=== PATIENT | male | born 1935 | race Caucasian/White ===

== ENCOUNTER 2018-02-18 00:15 | Emergency (ER) | payer MEDICARE, OTHER ==
[~2018-02-18] VITALS: Ht 180.3 cm; Wt 98.6 kg
[~2018-02-18 00:15] MED LIST: ACTOS30 MG OR; AMARYL1 MG OR; AMITRIPTYLIN25 MG OR; BABY ASPIRIN81 MG OR; BACTRIM DS1 TAB OR; CARDIZEM CD240 MG PO; CARVEDILOL25 MG OR; CHERATUSSIN OR; CIPRO500 MG OR; CIPRO500 MG PO; FEXOFENADINE H180 MG OR; FLAGYL500 MG OR; FLONASE NASAL50 MCG; GLUCOPHAGE1000 MG OR; GLYNASE3 MG PO; GLYNASE6 MG PO; HYDROCHLOROT12.5 MG PO; HYDROCHLOROT50 MG OR; ISOSORB MONO30 MG PO; LASIX 40 MG TAB40 MG PO; LASIX20 MG OR; LISINOPRIL10 MG PO; LOTENSIN10 MG OR; LOTENSIN20 MG PO; LUNESTA2 M1 OR; METOPROL TAR50 MG PO; NEXIUM40 M1 OR; OMEPRAZOLE20 MG PO; PERCOCET 5/325M1 TAB OR; PRAVASTATIN40 MG OR; REGLAN10 MG OR; ZOLPIDEM5 MG PO
[2018-02-18 00:44] VITALS: BP 185/82
== END 2018-02-18 00:44 | disposition home or self-care (01) ==
LOC: ED 00:15
DX: S61.213A Laceration without foreign body of left middle finger without damage to nail, initial encounter (principal); W26.0XXA Contact with knife, initial encounter; Y93.G1 Activity, food preparation and clean up; Y92.000 Kitchen of unspecified non-institutional (private) residence as the place of occurrence of the external cause; Z79.02 Long term (current) use of antithrombotics/antiplatelets; Z79.82 Long term (current) use of aspirin

== ENCOUNTER 2019-02-14 10:48 | Emergency (ER) | payer MEDICARE, OTHER ==
[~2019-02-14] VITALS: Ht 180.3 cm; Wt 104.0 kg
[2019-02-14] MEDS ORDERED: LIPITOR40 M1 PO (10:57)
[2019-02-14] MEDS ORDERED: ATENOLOL50 MG PO (10:57)
[2019-02-14] MEDS ORDERED: BENAZEPRIL5 MG PO (10:58)
[2019-02-14] MEDS ORDERED: CLOPIDOGREL75 MG PO (11:00)
[2019-02-14] MEDS ORDERED: FUROSEMIDE20 MG PO (11:00)
[2019-02-14] MEDS ORDERED: GABAPENTIN100 MG PO (11:01)
[2019-02-14] MEDS ORDERED: TRAZODONE50 MG PO (11:01)
[2019-02-14] MEDS ORDERED: NOVOLIN 70/30 INNLT SC (11:02)
[2019-02-14] MEDS ORDERED: BACTRIM DS1 TAB PO (11:41)
[2019-02-14 12:24] VITALS: BP 168/72
== END 2019-02-14 12:45 | disposition home or self-care (01) ==
LOC: ED 10:48
DX: S91.215A Laceration without foreign body of left lesser toe(s) with damage to nail, initial encounter (principal)

== ENCOUNTER 2019-07-29 | Emergency (ER) | payer MEDICARE, OTHER ==
[~2019-07-29] MED LIST changes: +ATENOLOL50 MG PO; +BACTRIM DS1 TAB PO; +BENAZEPRIL5 MG PO; +CLOPIDOGREL75 MG PO; +FUROSEMIDE20 MG PO; +GABAPENTIN100 MG PO; +LIPITOR40 M1 PO; +NOVOLIN 70/30 INNLT SC; +TRAZODONE50 MG PO
[2019-07-29 12:38] LABS: HEMATOCRIT 39.7 % (39.0-50.0); HEMOGLOBIN 12.7 g/dl (14.0-18.0); IMMATURE GRANULOCYTES 0.5 % (0.0-5.0); MEAN CELL VOLUME 94.1 fL CALC (80.0-100.0); MEAN CORPUSCULAR HGB 30.1 pG CALC (26.0-32.0); NEUT# 13.3 thou/uL (1.82-7.42); RED BLOOD COUNT 4.22 mill/uL (4.70-6.10); RED CELL DISTRI WIDTH 13.9 % (11.5-15.5)
[2019-07-29 12:45] LABS: URINE BILIRUBIN - DIPSTICK NEGATIVE (NEGATIVE); URINE BLOOD DIPSTICK TRACE-INTACT (NEGATIVE); URINE COLOR YELLOW; URINE GLUCOSE - DIPSTICK NEGATIVE (NEGATIVE); URINE KETONE NEGATIVE (NEGATIVE); URINE LEUK ESTERASE NEGATIVE (NEGATIVE); URINE NITRITE - DIPSTICK NEGATIVE (Negative); URINE PH 5.5 (4.5-8.0); URINE PROTEIN - DIPSTICK NEGATIVE (NEG-TRACE); URINE UROBILINOGEN - DIPSTICK 0.2 E.U./dL (0.2)
[2019-07-29 13:03] LABS: ALBUMIN 3.8 g/dL (3.2-5.0); ALKALINE PHOSPHATASE 113 u/l (38-126); ANION GAP 14 (6-22 (CALC)); BUN 24 mg/dL (8-23); BUN/CREATININE RATIO 19 (12-20 (CALC)); CARBON DIOXIDE 24 mmol/l (22-30); CHLORIDE 102 mmol/l (95-108); CREATININE 1.3 mg/dL (0.7-1.3); GFR 53 ML/MIN (>=60 (CALC)); GFR FOR AFR.AMER. > 60 ML/MIN (>=60 (CALC)); POTASSIUM 4.3 mmol/l (3.5-5.1); SGOT/AST 34 u/l (19-48); SODIUM 135 mmol/l (137-146); TOTAL PROTEIN 6.7 g/dL (6.3-8.2)
[2019-07-29 13:05] LABS: BILIRUBIN, TOTAL 1.3 mg/dL (0.0-1.4)
[2019-07-29] MEDS ORDERED: NOVOLIN 70/30 SC (13:09)
[2019-07-29] MEDS ORDERED: MV-ONE PO (13:13)
[2019-07-29] MEDS ORDERED: LOSARTAN POTASS50 MG PO (13:16)
[2019-07-29] MEDS ORDERED: NITROGLYCERIN0.4 MG SL (13:18)
[2019-07-29] MEDS ORDERED: VITAMIN D2 PO (13:19)
[2019-07-29] MEDS ORDERED: LEVAQUIN750 MG PO (15:21)
== END 2019-07-29 16:15 | disposition home or self-care (01) ==
PROVIDERS: Family Medicine
DX: J18.9 Pneumonia, unspecified organism (principal); E11.9 Type 2 diabetes mellitus without complications; I10 Essential (primary) hypertension; Z79.4 Long term (current) use of insulin; Z20.828 Contact with and (suspected) exposure to other viral communicable diseases
CPT/HCPCS: J1956; Q9967

== ENCOUNTER 2020-08-21 07:25 | Inpatient (IN) | payer MEDICARE, OTHER ==
[~2020-08-21] VITALS: Ht 180.3 cm; Wt 110.0 kg
[~2020-08-21 07:25] MED LIST changes: +LEVAQUIN750 MG PO; +LOSARTAN POTASS50 MG PO; +MV-ONE PO; +NITROGLYCERIN0.4 MG SL; +NOVOLIN 70/30 SC; +VITAMIN D2 PO
--- NOTE | 2020-08-21 07:25 | NUR ---
PATIENT TO ROOM VIA EMS AND PHYSICIAN AT BEDSIDE FOR EVAL
[2020-08-21 08:11] LABS: HEMATOCRIT 42.5 % (39.0-50.0); HEMOGLOBIN 13.3 g/dl (14.0-18.0); IMMATURE GRANULOCYTES 0.5 % (0.0-5.0); MEAN CELL VOLUME 95.3 fL CALC (80.0-100.0); MEAN CORPUSCULAR HGB 29.8 pG CALC (26.0-32.0); MEAN CORPUSCULAR HGB CONC 31.3 g/dL CAL (32.0-36.0); NEUT# 6.66 thou/uL (1.82-7.42); RED BLOOD COUNT 4.46 mill/uL (4.70-6.10); RED CELL DISTRI WIDTH 14.4 % (11.5-15.5)
[2020-08-21 08:21] LABS: URINE BILIRUBIN - DIPSTICK NEGATIVE (NEGATIVE); URINE BLOOD DIPSTICK NEGATIVE (NEGATIVE); URINE COLOR YELLOW; URINE GLUCOSE - DIPSTICK NEGATIVE (NEGATIVE); URINE KETONE NEGATIVE (NEGATIVE); URINE LEUK ESTERASE NEGATIVE (NEGATIVE); URINE PH 5.5 (4.5-8.0); URINE PROTEIN - DIPSTICK NEGATIVE (NEG-TRACE); URINE UROBILINOGEN - DIPSTICK 0.2 E.U./dL (0.2)
[2020-08-21 08:26] LABS: URINE NITRITE - DIPSTICK NEGATIVE (Negative)
[2020-08-21 08:31] LABS: ALBUMIN 3.8 g/dL (3.2-5.0); ALKALINE PHOSPHATASE 141 u/l (38-126); AMYLASE 54 u/l (30-110); BILIRUBIN, TOTAL 0.8 mg/dL (0.0-1.4); BUN 30 mg/dL (8-23); BUN/CREATININE RATIO 15 (12-20 (CALC)); CHLORIDE 100 mmol/l (95-108); GFR 32 ML/MIN (>=60 (CALC)); GFR FOR AFR.AMER. 39 ML/MIN (>=60 (CALC)); LIPASE 38 u/l (23-300); MAGNESIUM 2.2 mg/dL (1.6-2.3); SGOT/AST 31 u/l (19-48); SODIUM 137 mmol/l (137-146); TOTAL PROTEIN 7.1 g/dL (6.3-8.2)
--- NOTE | 2020-08-21 08:34 | NUR ---
AT BEDSIDE. PT RESTING COMFORTABLY
[2020-08-21 08:36] LABS: ANION GAP 11 (6-22 (CALC)); C-REACTIVE PROTEIN 3.2 mg/dL (0-0.9); CARBON DIOXIDE 30 mmol/l (22-30)
[2020-08-21] MEDS ORDERED: ATENOLOL50 MG PO (09:22)
[2020-08-21] MEDS ORDERED: ASPIRIN81 MG PO (09:22)
[2020-08-21] MEDS ORDERED: LIPITOR40 M1 PO (09:23)
[2020-08-21] MEDS ORDERED: LOSARTAN POTASS50 MG PO ×2 (09:24)
[2020-08-21] MEDS ORDERED: FAMOTIDINE40 M1 PO (09:25)
[2020-08-21] MEDS ORDERED: CLOPIDOGREL75 MG PO (09:26)
[2020-08-21] MEDS ORDERED: FUROSEMIDE20 MG PO (09:28)
[2020-08-21] MEDS ORDERED: ISOSORB MONO30 MG PO (09:29)
[2020-08-21] MEDS ORDERED: GABAPENTIN100 MG PO (09:29)
[2020-08-21] MEDS ORDERED: MULTIVITAMI9 PO (09:30)
--- NOTE | 2020-08-21 09:30 | NUR ---
RESTING ON STRETCHER. CALL IVORY WITHIN REACH. O2 SATURATION DECREASES TO LOW 90'S WHEN FALLING ASLEEP. ENCOURAGED TO TAKE DEEP BREATHS AND OXYGEN INCREASED TO 4L VIA NC
[2020-08-21] MEDS ORDERED: VITAMIN D31000 UNI1 PO (09:36)
[2020-08-21] MEDS ORDERED: NOVOLOG MIX100 U/ML SC (09:37)
[2020-08-21] MEDS ORDERED: PROTONIX40 M2 PO (09:37)
[2020-08-21] MEDS ORDERED: TRAZODONE50 MG PO (09:38)
[2020-08-21] MEDS ORDERED: NITROGLYCERIN0.4 MG SL (09:41)
--- NOTE | 2020-08-21 10:39 | NUR ---
TOOK OVER CARE AT THIS TIME, PATIENT DENIES ADDITIONAL PAIN FROM CHRONIC LEVELS, PROVIDED WITH ADDITIONAL ORAL INTAKE AT THIS TIME, AT THE BEDSIDE
--- NOTE | 2020-08-21 11:55 | NUR ---
FEELING MUCH BETTER, AT BEDSIDE
--- NOTE | 2020-08-21 12:35 | NUR ---
PATIENT ARRIVED TO UNIT VIA STREATCHER WITH AT SIDE. PATIENT ALERT AND ORIENTED TO ROOM AND SURROUNDINGS AND THE USE OF A CALL LIGHT. PATIENT SIDERAILS ARE UP X 2. PATIENT LUNG SOUNDS ASSESSED UPPER LUNG WOLFE ARE CLEAR SOUNDING AND LOWER LONG FIELD ARE DIMINISHED. PATIENT PRESENTS WITH TRACE OF BILATERAL LOWER ANKLE EDEMA. PATIENT HAS 02 ON AT 2 LITER AND SPO2 IS 96%. 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 PATIENT DENEIS ANY PAIN AND NO OPEN AREAS ON SKIN NOTED AT THIS TIME. PATIENT IS ALERT AND ORIENTED AND UNDERSTANDS SAFETY POLICY. PATIENT IV IS PATENT AND IS A #20 LAC WITH .9NS/100MLS AND HOUR. SIDERAILS ARE UP CALL LIGHT WITHIN REACH NO NOTICIABLE SHORTNESS OF BREATH AND PATIENT DENIES BEING SHORT OF BREATH. PATIENT ALSO DENIES ANY NAUSEA AND OR VOMITTING AT THIS TIME. PATIENT IS EATING LUNCH CURRENTLY. WILL CONTINUE TO MONITOR.
--- NOTE | 2020-08-21 12:44 | NUR ---
Admission Note Report Given to: NEVA Transported by: Wheelchair X Stretcher Transported with: X Nurse Transporter X Patent IV X O2 Log Buncher Location: ICU X [facility]
[2020-08-21 13:43] VITALS: BP 95/57
[2020-08-21 16:00] VITALS: BP 96/57
--- NOTE | 2020-08-21 16:00 | NUR ---
PATIENT RESTING IN BED AT THIS TIME. PATIENT DENIES ANY PAIN OR NAUSEA AND OR VOMITING AT THIS TIME. PATIENT DENIES ANY SHORTNESS OF BREATH AND O2 REMAINS ON AT 2 LITERS. SIDERAILS ARE UP X 2 CALL LIGHT WITHIN REACH AND BED ALARM ACTIVATED.
--- NOTE | 2020-08-21 19:34 | NUR ---
PT ASSESSMENT COMPLETED AT THIS TIME. HE IS AWAKE WATCHING TV, ASKED FOR HIS PHONE, STARTED MAKING A PHONE CALL WHILE I AM IN THE ROOM. C/O BURNING TO HIS FEET, STATED 'I HAVEN'T HAD ANY OF MY MEDICATIONS." MED REQ REVIEWED, I INFORMED HIM OF MED SCHEDULE, VERBALIZED UNDERSTANDING. PT LEFT TALKING ON THE PHONE. WHEEZING WAS AUSCULTATED THROUGHOUT ALL LOBES UPON EXPIRATION. SKIN APPEARS INTACT. NEURO'S ALSO INTACT. LOCX3. PT ALSO STATED "THEY WON'T LET ME UP BY MYSELF" I REINFORCED THAT ASKING HIM TO PLEASE CALL, SHOWING HIM THE RED CALL BUTTON, HE VERBALIZED UNDERSTANDING. BED ALARM IS ON FOR PRECAUTIONS.
[2020-08-21 20:05] VITALS: BP 136/65
--- NOTE | 2020-08-21 20:33 | NUR ---
MEDICATION ADMINISTERED AT THIS TIME.
--- NOTE | 2020-08-21 22:09 | NUR ---
PT SET BED ALARM OFF, UPON ENTERING THE ROOM, HE WAS SITTING ON THE SIDE OF THE BED USING THE URINAL. 200CC OF DARK YELLOW CLEAR URINE EMPTIED AT THIS TIME. ASSISTED PT BACK INTO THE BED AND ASSISTED POSITIONING FOR COMFORT. PT ASKED FOR LIGHTS TO BE TURNED DOWN AND TV OFF. NIGHTLIGHT LEFT ON FOR SAFETY AND COMFORT TO ASSIST IN SEEING CALL LIGHT. DENIES ANY OTHER NEEDS AT THIS TIME. BED ALARM IS ON AND CALL LIGHT W/IN REACH.
--- NOTE | 2020-08-21 23:36 | NUR ---
MANUAL BP ASSESSED AT THIS TIME. 108/62. PT ASKED FOR WATER, I REMINDED HIM THAT HE HAS IT ON HIS BST NEXT TO HIM, HE REPLIED, "I KNOW BUT IT IS A LOT OF WORK TURNING OVER AND GETTING TO IT" I REMINDED HIM TO KEEP MOVING TO HELP HIS LUNGS AND STREGNTH. ANTIBIOTIC THERAPY ADMINISTERED AT THIS TIME AND CALL LIGHT AT SIDE. BED ALARM IS ON.
[2020-08-22] VITALS: BP 108/62
--- NOTE | 2020-08-22 00:42 | NUR ---
PT SOUNDED BED ALARM. UPON ENTERING THE ROOM, PT WAS OBSERVED SITTING ON THE SIDE OF THE BED. REPORTS NOT BEING ABLE TO SLEEP, HE ASKED FOR SLEEP AIDE, I INFORMED HIM THAT HE ALREADY TOOK TRAZADONE FOR SLEEP, HE REPLIED, "I DIDN'T REALIZE I HAD TAKEN IT ALREADY, I WOULD HAVE WAITED UNTIL I WAS READY TO GO TO BED" I INFORMED HIM THAT HE TOOK IT JUST BEFORE TURNING LIGHTS AND TV OFF FOR THE NIGHT. WARM BROTH, MILK, COMFORT MEASURES OFFERED/REFUSED AT THIS TIME. PT DENIED THE NEED TO USE URINAL. I OFFERED TO ASSIST HIM TO THE RECLINER FOR COMFORT/DENIED. PT LEFT SITTING ON THE SIDE OF THE BED WITH CALL LIGHT W/IN REACH.
--- NOTE | 2020-08-22 01:45 | NUR ---
pt sleeping, no s/o distress noted. call light at side.
--- NOTE | 2020-08-22 03:56 | NUR ---
v/s assessed, no s/o distress noted.
[2020-08-22 04:00] VITALS: BP 110/48
[2020-08-22 05:47] LABS: MEAN CELL VOLUME 97.3 fL CALC (80.0-100.0); MEAN CORPUSCULAR HGB 29.8 pG CALC (26.0-32.0); MEAN CORPUSCULAR HGB CONC 30.6 g/dL CAL (32.0-36.0); RED BLOOD COUNT 3.73 mill/uL (4.70-6.10); RED CELL DISTRI WIDTH 14.8 % (11.5-15.5)
[2020-08-22 05:51] LABS: HEMATOCRIT 36.3 % (39.0-50.0); HEMOGLOBIN 11.1 g/dl (14.0-18.0)
[2020-08-22 06:03] LABS: CREATININE 1.5 mg/dL (0.7-1.3); MAGNESIUM 2.3 mg/dL (1.6-2.3); POTASSIUM 4.3 mmol/l (3.5-5.1)
--- NOTE | 2020-08-22 07:00 | NUR ---
PT REPORT RECEIVED FROM NIGHT NURSEMYRA.
[2020-08-22 08:00] VITALS: BP 129/68
--- NOTE | 2020-08-22 08:00 | NUR ---
PT WAS FOUND RESTING IN BED;PT IS A&OX3;VS AND ASSESSMENT WERE COMPLETED;PT HAS NO REPORTS OF PAIN AT THIS TIME;HEART SOUNDS ARE REGULAR IN RATE AND RHYTHM;TELE IS IN PLACE;LUNGS SOUNDS ARE DIMINISHED IN ALL LOBES;RESPIRATIONS ARE EVEN AND UNLABORED ON RA;O2@2L VIA NC IS IN PLACE;PT HAS TRACE EDEMA PRESENT IN LOWER LEGS BILATERALLY;#20G IV IN LAC IS RUNNING NS@100ML/HR:IV SITE APPEARS TO BE FREE OF COMPLICATIONS AT THIS TIME;SAFETY PRECAUTIONS IN PLACE;BED ALARM ON;CALL LIGHT WITHIN REACH;PT ENCOURAGED TO CALL WITH ANY NEEDS OR CONCERNS;BED IN LOWEST POSITION;WILL CONTINUE TO MONITOR.
--- NOTE | 2020-08-22 10:30 | NUR ---
AND PABLO MARTINEZ AT BEDSIDE DISCUSSING POC WITH PT
[2020-08-22 10:54] VITALS: BP 144/56
--- NOTE | 2020-08-22 12:55 | NUR ---
PT IS COMPLAINING OF SNEEZING WHEN O2 IS IN PLACE; HUMIDIFIED AIR WAS ADDED TO O2.
[2020-08-22 15:30] VITALS: BP 96/54
--- NOTE | 2020-08-22 16:00 | NUR ---
PT WAS FOUND RESTING IN BEDSIDE CHAIR WATCHING TV;PT IS REPORTING NO PAIN AT THIS TIME;TELE IS IN PLACE;#20G IV IN LAC IS RUNNING NS@100 ML/HR;IV SITE APPEARS FREE OF COMPLICATIONS AT THIS TIME;SAFETY PRECAUTIONS IN PLACE;CHAIR ALARM ON;CALL LIGHT WITHIN REACH;PT EMCOURAGED TO CALL FOR ANY NEEDS OR CONCERNS;WILL CONTINUE TO MONITOR.
[2020-08-22 19:00] VITALS: BP 108/52
--- NOTE | 2020-08-22 20:00 | NUR ---
PHYSICAL ASSESMENT COMPLETE. PT CURRENTLY DENIES PAIN OR DISCOMFORT. SCHEDULED MEDICATIONS AND PRN MEDICATION ADMINISTERED, SEE E-MAR. PT DENIES ANY NEEDS AT THIS TIME. PLAN OF CARE REVIEWED, PT DENIES QUESTIONS, VERBALIZES UNDERSTANDING. ITEMS WITHIN REACH, BED LOCKED IN LOW POSITION W/ BEDRAILS UP X2. CALL IVORY WITHIN REACH, AGREES TO CALL PRN.
--- NOTE | 2020-08-23 | NUR ---
PT LAYING IN BED WITH EYES CLOSED, APPEARS TO BE SLEEPING, APPEARS COMFORTABLE AND IN NO DISTRESS. RESPIRATIONS REGULAR AND UNLABORED. ITEMS REMAIN WITHIN REACH, CALL IVORY REMAINS WITHIN REACH. BED REMAINS LOCKED AND IN LOW POSITION WITH BEDRAILS UP X2. WILL CONTINUE TO MONITOR.
[2020-08-23 00:17] VITALS: BP 125/62
--- NOTE | 2020-08-23 04:04 | NUR ---
PT RESTING IN BED, NO SIGNS OF DISTRESS NOTED, RESP EVEN AND UNLABORED. PT VOICES NO NEEDS OR COMPLAINTS AT THIS TIME. CALL LIGHT IN REACH, CONTINUE TO MONITOR.
--- NOTE | 2020-08-23 04:07 | NUR ---
PT SITTING UP BEDSIDE. C/O DIFFICULTY BREATHING WHILE LYING DOWN. BED ALARM IS ON; WILL CONTINUE TO MONITOR.
[2020-08-23 04:30] VITALS: BP 99/40
[2020-08-23 06:54] LABS: HEMATOCRIT 35.3 % (39.0-50.0); HEMOGLOBIN 10.8 g/dl (14.0-18.0); MEAN CELL VOLUME 97.8 fL CALC (80.0-100.0); MEAN CORPUSCULAR HGB 29.9 pG CALC (26.0-32.0); MEAN CORPUSCULAR HGB CONC 30.6 g/dL CAL (32.0-36.0); RED BLOOD COUNT 3.61 mill/uL (4.70-6.10); RED CELL DISTRI WIDTH 14.6 % (11.5-15.5)
--- NOTE | 2020-08-23 07:00 | NUR ---
PT REPORT RECEIVED FROM NIGHT NURSEIVANNA
[2020-08-23 07:28] LABS: ANION GAP 9 (6-22 (CALC)); BUN 24 mg/dL (8-23); BUN/CREATININE RATIO 18 (12-20 (CALC)); CARBON DIOXIDE 23 mmol/l (22-30); CHLORIDE 105 mmol/l (95-108); CREATININE 1.3 mg/dL (0.7-1.3); GFR 53 ML/MIN (>=60 (CALC)); GFR FOR AFR.AMER. > 60 ML/MIN (>=60 (CALC)); MAGNESIUM 2.1 mg/dL (1.6-2.3); POTASSIUM 4.4 mmol/l (3.5-5.1); SODIUM 133 mmol/l (137-146)
[2020-08-23 07:30] VITALS: BP 134/63
--- NOTE | 2020-08-23 08:00 | NUR ---
PT WAS FOUND RESTING IN BEDSIDE CHAIR;PT IS A&OX3;VS AND ASSESSMENT WERE COMPLETED;PT IS REPORTING NO PAIN AT THIS TIME;HEART SOUNDS ARE REGULAR IN RATE AND RHYTHM;TELE IS IN PLAICE;LUNG SOUNDS ARE DIMINISHED IN ALL LOBES;RESPIRATIONS ARE EVEN AND UNLABORED ON O2@2L VIA NC;PT HAS SOME TRACE PITTING EDEMA IN HIS LOWER EXTREMETIES;#20G IV IN LAC IS RUNNING NS@100ML/HR;IV SITE APPEARS FREE OF COMPLICATIONS AT THIS TIME;SAFETY PRECAUTIONS IN PLACE;CHAIR ALARM ON;CALL LIGHT WITHIN REACH;PT ENCOURAGED TO CALL WITH ANY NEEDS OR CONCERNS;WILL CONTINUE TO MONITOR.
[2020-08-23 10:23] VITALS: BP 106/54
--- NOTE | 2020-08-23 11:18 | NUR ---
PT TRANSPORTED TO CT VIA WC IN STABLE CONDITION ACCOMPANIED BY DM STAFF.
--- NOTE | 2020-08-23 12:50 | NUR ---
PT RETURNED VIA WC IN STABLE CONDITION FROM CT ACCOMPANIED BY STAFF
[2020-08-23] MEDS ORDERED: LEVAQUIN750 M1 PO (14:48)
[2020-08-23 15:07] VITALS: BP 137/58
--- NOTE | 2020-08-23 16:00 | NUR ---
PT WAS FOUND RESTING IN BED IN SEMI-FOWLERS POSITION; IS AT BEDSIDE;TELE IS DC WELL IV REMOVED IN ANTICIPATION OF DISCHARGE;SAFETY PRECAUTIONS IN PLACE;CALL LIGHT WITHIN REACH;BED ALARM ON;WILL CONTINUE TO MONITOR.
--- NOTE | 2020-08-23 16:50 | NUR ---
Discharge instructions given. Patient verbalizes understanding of same. Discharged in stable condition via Wheelchair to Home with spouse. All belongings sent with pt. DISCHARGE PACKET WAS GIVEN TO PT;DISCHARGE INSTRUCTIONS AND MEDICATIONS WERE EXPLAINED TO PT;PT EXPRESSED UNDERSTANDING AND HAD NO FURTHER QUESTIONS;SIGNATURE WAS OBTAINED;TELE WAS REMOVED;IV WAS REMOVED WITH NO COMPLICATIONS AND CATHETER INTACT; PT WAS TRANSPORTED TO [facility] VIA IN STABLE CONDITION ACCOMPANIED BY STAFF;ALL PT BELONGINGS WERE SENT WITH PT;PT WILL BE TRANSPORTED HOME WITH HOME HEALTH AND PHYSICAL THERAPY IN PLACE;PT WILL TRANSPORT HOME WITH FAMILY.
== END 2020-08-23 16:50 | disposition home health service (06) | DRG 193 ==
LOC: ED 07:25 → ED-I 10:54 → ED 11:22 → MS2 11:23
PROVIDERS: Emergency Medicine; Nurse Practitioner; ADMIT Internal Medicine; ATTEND Internal Medicine
DX: J18.9 Pneumonia, unspecified organism (principal); J96.91 Respiratory failure, unspecified with hypoxia; N17.9 Acute kidney failure, unspecified; E11.22 Type 2 diabetes mellitus with diabetic chronic kidney disease; I12.9 Hypertensive chronic kidney disease with stage 1 through stage 4 chronic kidney disease, or unspecified chronic kidney disease; N18.9 Chronic kidney disease, unspecified; R16.0 Hepatomegaly, not elsewhere classified; K21.9 Gastro-esophageal reflux disease without esophagitis; I25.10 Atherosclerotic heart disease of native coronary artery without angina pectoris; Z95.1 Presence of aortocoronary bypass graft; Z79.4 Long term (current) use of insulin; Z20.822 Contact with and (suspected) exposure to COVID-19
CPT/HCPCS: J1650; Q9967; S0073

== ENCOUNTER 2020-08-23 21:21 | Emergency (ER) | payer MEDICARE, OTHER ==
[~2020-08-23] VITALS: Ht 180.3 cm; Wt 100.0 kg
[~2020-08-23 21:21] MED LIST changes: +ASPIRIN81 MG PO; +FAMOTIDINE40 M1 PO; +LEVAQUIN750 M1 PO; +MULTIVITAMI9 PO; +NOVOLOG MIX100 U/ML SC; +PROTONIX40 M2 PO; +VITAMIN D31000 UNI1 PO
[2020-08-23 21:55] LABS: HEMATOCRIT 34.7 % (39.0-50.0); IMMATURE GRANULOCYTES 0.5 % (0.0-5.0); MEAN CELL VOLUME 94.8 fL CALC (80.0-100.0); MEAN CORPUSCULAR HGB 30.1 pG CALC (26.0-32.0); MEAN CORPUSCULAR HGB CONC 31.7 g/dL CAL (32.0-36.0); NEUT# 8.93 thou/uL (1.82-7.42); RED BLOOD COUNT 3.66 mill/uL (4.70-6.10); RED CELL DISTRI WIDTH 14.4 % (11.5-15.5)
[2020-08-23 22:12] LABS: INTERNATIONAL NORMALIZED RATIO 1.1 RATIO (0.7-1.3); PROTHROMBIN TIME 10.8 SECONDS (9.0-12.5)
[2020-08-23 22:15] LABS: ALBUMIN 3.3 g/dL (3.2-5.0); ALKALINE PHOSPHATASE 132 u/l (38-126); ANION GAP 11 (6-22 (CALC)); BILIRUBIN, TOTAL 1.5 mg/dL (0.0-1.4); BUN 24 mg/dL (8-23); BUN/CREATININE RATIO 18 (12-20 (CALC)); CARBON DIOXIDE 22 mmol/l (22-30); CHLORIDE 103 mmol/l (95-108); CREATININE 1.3 mg/dL (0.7-1.3); GFR 53 ML/MIN (>=60 (CALC)); GFR FOR AFR.AMER. > 60 ML/MIN (>=60 (CALC)); POTASSIUM 4.4 mmol/l (3.5-5.1); SGOT/AST 41 u/l (19-48); SODIUM 132 mmol/l (137-146); TOTAL PROTEIN 6.6 g/dL (6.3-8.2)
[2020-08-23 22:33] LABS: MYOGLOBIN 663 ng/mL (0 - 121)
[2020-08-24 01:05] VITALS: BP 195/86
== END 2020-08-24 01:05 | disposition short-term general hospital (02) ==
LOC: ED 21:21
PROVIDERS: Emergency Medicine
DX: I21.4 Non-ST elevation (NSTEMI) myocardial infarction (principal); J18.9 Pneumonia, unspecified organism; R16.0 Hepatomegaly, not elsewhere classified; I25.10 Atherosclerotic heart disease of native coronary artery without angina pectoris; E11.9 Type 2 diabetes mellitus without complications; I10 Essential (primary) hypertension; Z95.1 Presence of aortocoronary bypass graft; Z79.4 Long term (current) use of insulin; Z20.822 Contact with and (suspected) exposure to COVID-19